=== PATIENT | male | born 1980 | race Caucasian/White ===

== ENCOUNTER 2024-12-17 12:13 | Day surgery (SDC) | payer OTHER, MEDICAID, SELFPAY ==
[2024-12-17] VITALS (9 sets, daily range): BP systolic 107–134; BP diastolic 83–89; PULSE 73–83; RESP 15–18; TEMP 36.2–36.6; O2SAT 73–100; BMI 34.5
[2024-12-17 13:15] LABS: Bedside Glucose 80 mg/dL (74-106)
--- NOTE | 2024-12-17 13:22 | PCM.PRE.AN2 ---
ASA Classification* ASA Classification ASA Classification: 2 Assessment & Plan Anesthesia* Anesthesia Assessment Anesthesia Assessment: Discussed sedation and/or anesthesia options, risks, benefits, and alternatives with patient/parents/legal guardian/POA. Questions invited. The patient/parents/legal guardian/POA seems to understand and agrees to proceed with anesthesia plan. Reviewed the physical assessment, medical history, allergy history and patient home medications list prior to surgery/procedure/anesthetic and documented any changes. Performed airway and anesthesia risk assessments. Anesthesia Type Anesthesia Type: MAC Anesthesia Focused Assessment* Temperature: 97.9 F Pulse Rate: 73 Blood Pressure: 134/88 Respiratory Rate: 16 Pulse Ox: 96 Airway Assessment Mouth opens: >3 cm Mallampati Score: II Teeth Condition: Caps/Crowns Neck Range of motion (ROM): Full ROM Focused Labs Anesthesia Preop lab: CBC CHEMISTRY POC Glucose 80 mg/dL (74-106) 12/17/24 12:44 COAG Pre-Assessment Diagnosis/Proposed Procedure Planned Operative Procedure(s): COLONOSCOPY Anesthesia History Anesthesia History - photograph finisher: Anesthesia History - photograph finisher Hx Hospitalization No 12/14/24 15:40 Any Problems With Anesthesia No 12/14/24 15:40 Cholinesterase deficiency No 12/14/24 15:40 You/Your Family Experience No 12/14/24 15:40 fever (hyperthermia) with Relationship Recent Exposure to Contagious No 12/17/24 12:44 Disease Does patient have nerve No 12/14/24 15:40 stimulator Patient instructed to have device shut off --Does patient have Pacemaker No 12/17/24 12:44 or ICD? When Was Last Pacemaker Check QUESTION #4 FULL TEXT: You/Your Family Experience fever (hyperthermia) with Anesthesia Last Oral Intake Last Oral intake: Last Oral Intake NPO since 10:30 12/17/24 12:44 Meds taken in AM with sips of water? Meds patient instructed to take am of surgery PONV PONV - photograph finisher: PONV - photograph finisher Female No 12/14/24 15:40 HX of Motion Sickness No 12/14/24 15:40 HX of N/V After Surgery No 12/14/24 15:40 Non-Smoker Yes 12/14/24 15:40 Duration of Surgery greater No 12/14/24 15:40 than 60 minutes Number of Risk Factors 1 12/14/24 15:40 PONV Score Low Risk 12/14/24 15:40 Height & Weight Height & Weight: Anesthesia: Height & Weight Height 5 ft 7 in 12/17/24 12:44 Weight: 100 kg 12/17/24 12:44 Body Mass Index (BMI) 34.5 12/17/24 12:44 Respiratory Assessment Respiratory Assessment - photograph finisher: Respiratory Tract Infection Hx - photograph finisher Hx Respiratory Tract Infection No 12/14/24 15:40 STOP Sleep Apnea STOP Sleep Apnea - photograph finisher: STOP Sleep Apnea - photograph finisher Hx Hypertension No 12/14/24 15:40 Hx Sleep Apnea Yes 12/14/24 15:40 CPAP Yes 12/14/24 15:40 BIPAP No 12/14/24 15:40 Do you snore loudly (louder than talking or can be heard Do you often feel tired/ fatigued/ sleepy during daytime? Has anyone observed you stop breathing during sleep? STOP Results Positive 12/14/24 15:40 QUESTION #5 FULL TEXT : Do you snore loudly (louder than talking or can be heard through closed doors)? 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 Specify any problems Hx of Preganancy in last 3 N/A 12/14/24 15:40 Months Nurse Filling Out Transfusion [email or web address] 12/14/24 15:40 & Questions: Date: 12/14/24 12/14/24 15:40 Time: 15:44 12/14/24 15:40 Patient unable to answer at this time (ie. confused, unrespo /Reproduction History /Reproductive History - photograph finisher: /Reproductive Hx- photograph finisher Hx Now Gestational Age (in weeks): EDC: Hx Hx Para Hx Section SAB PFSH Medical History Wears glasses Generalized anxiety disorder Depression Kidney stones Hepatic steatosis GERD (gastroesophageal reflux disease) Daytime sleepiness Home Medications ?Medication ?Instructions ?Recorded ?Last Taken ?Type armodafinil 200 mg tablet 200 mg PO QAM PRN ALERTNESS 09/15/24 Unknown History bupropion HCl 300 mg 24 hr tablet, 300 mg PO QAM 09/15/24 Unknown History extended release omeprazole 40 mg capsule,delayed 40 mg PO QDAY 09/15/24 Unknown History release sertraline 100 mg tablet 100 mg PO QDAY 09/15/24 Unknown History trazodone 50 mg tablet 50 mg PO QHS 09/15/24 Unknown History EVOLUTION 2.0 1 cap PO DAILY 12/14/24 Unknown History Allergy/AdvReac Type Severity Reaction Status Date / Time No Known Allergies Allergy Verified 12/17/24 12:38 Family History (Updated 10/12/24 @ 07:44 by Jocelyne Hanna) Mother Diabetes Father Kidney disease Surgical History History of wisdom tooth extraction History of cystoscopy Social History (Updated 10/12/24 @ 07:44 by Jocelyne Hanna) Smoking Status: Former smoker quit date: 06/28/18 alcohol intake: current alcohol intake frequency: holidays/special occasions only Review of Systems (Anesthesia) ROS Narrative System reviewed and no additional complaints, except as documented.
--- NOTE | 2024-12-17 13:28 | HP.PCM_ITS ---
HPI - General General Date of Admission: 12/29/24 Date of Service: 12/17/24 Chief Complaint: Screening colonoscopy HPI Narrative DOMINICK NEGRON, is a 44 M who presents for a screening colonoscopy. Pt has been on Metformin for years which has given him looser stools. He will have at least 2 episodes of loose stool per day. Occasionally, he will take Lomotil for the loose stools but has not taken anything daily before. He has seen GI in the past for GERD and underwent EGD a few years back. He has been taking omeprazole 40 mg daily since then she feels his symptoms are well controlled. He has some right sided abdominal discomfort on occasion with position changes. He does still have his gallbladder. He has identified that [facility], [facility] Medical History Wears glasses Generalized anxiety disorder Depression Kidney stones Hepatic steatosis GERD (gastroesophageal reflux disease) Daytime sleepiness Home Medications ?Medication ?Instructions ?Recorded ?Last Taken ?Type armodafinil 200 mg tablet 200 mg PO QAM PRN ALERTNESS 09/15/24 Unknown History bupropion HCl 300 mg 24 hr tablet, 300 mg PO QAM 09/15/24 Unknown History extended release omeprazole 40 mg capsule,delayed 40 mg PO QDAY 09/15/24 Unknown History release sertraline 100 mg tablet 100 mg PO QDAY 09/15/24 Unknown History trazodone 50 mg tablet 50 mg PO QHS 09/15/24 Unknown History EVOLUTION 2.0 1 cap PO DAILY 12/14/24 Unknown History Allergy/AdvReac Type Severity Reaction Status Date / Time No Known Allergies Allergy Verified 12/17/24 12:38 Family History Mother Diabetes Father Kidney disease Surgical History History of wisdom tooth extraction History of cystoscopy Social History Smoking Status: Former smoker quit date: 06/28/18 alcohol intake: current alcohol intake frequency: holidays/special occasions only ROS Constitutional Constitutional: Denies fatigue, fever(s), poor appetite, weight gain or weight loss Gastrointestinal Gastrointestinal: Denies belching, bloating, change in bowel habits, change in stool character, chewing difficulty, coffee ground emesis, constipation, cramping, diarrhea, dyspepsia, dysphagia, early satiety, excessive flatus, fecal incontinence, heartburn, hematemesis, hematochezia, hemorrhoids, loose stools, melena, nausea, odynophagia, rectal bleeding, tenesmus, vomiting or weight changes Vital Signs Vital Signs Vital Signs: 12/17/24 12:44 12/17/24 12:44 12/17/24 13:23 Temperature 97.9 F 97.9 F Temperature Source Temporal Pulse Rate 73 73 Respiratory Rate 16 16 Respiratory Pattern Normal Blood Pressure 134/88 H 134/88 H Blood Pressure Mean 103 Blood Pressure Source Monitor Blood Pressure Position Semi-Fowlers Blood Pressure Location Left Arm Pulse Ox 96 96 Oxygen Delivery Method Room Air Weight Weight: 220 lb 7.396 oz Body Mass Index (BMI) 34.5 Physical Exam Const alert, oriented x3, no apparent distress and healthy appearing General Appearance: cooperative GI normal to inspection, nondistended, normoactive bowel sounds, soft to palpation, non-tender and non-distended Percussion: normal to percussion Rectal Exam: deferred Results Lab / Micro Data Labs: Laboratory Results - last 24 hr 12/17/24 12:44: POC Glucose 80 Assessment & Plan Assessment/Plan (1) Screening for colon cancer: PLAN: Assessment and Plan Assessment and Plan (1) GERD (gastroesophageal reflux disease): Status: Acute Plan: This is a 43 yo male pt here today for establishment. Pt was referred here to us for screening colonoscopy as he will be turning 44 soon. He does have complains to loose stool associated with the use of his metformin. His GERD is well controlled on omeprazole therapy. He will undergo screening colonoscopy. -Colonoscopy -f/u as needed (2) Screening for colon cancer: Status: Acute
--- NOTE | 2024-12-17 14:02 | OP.COLON_ITS ---
Patient Name: Jonathan Self Procedure Date: 12/17/2024 1:34 PM Date of : 1980 Age: 44 Procedure: Colonoscopy Indications: Screening for colorectal malignant neoplasm Providers: Zhen Long DO Medicines: Monitored Anesthesia Care Patient Profile: This is a 44 year old male. Refer to note in patient chart for documentation of history and physical. Last Colonoscopy: none. The patient's first colonoscopy is today. Complications: No immediate complications. Procedure: Pre-Anesthesia Assessment: - Prior to the procedure, a History and Physical was performed, and patient medications and allergies were reviewed. The patient is competent. The risks and benefits of the procedure and the sedation options and risks were discussed with the patient. All questions were answered and informed consent was obtained. Patient identification and proposed procedure were verified by the physician in the pre-procedure area. Mental Status Examination: alert and oriented. Airway Examination: normal oropharyngeal airway and neck mobility. Respiratory Examination: clear to auscultation. CV Examination: normal. Prophylactic Antibiotics: The patient does not require prophylactic antibiotics. Prior Anticoagulants: The patient has taken no anticoagulant or antiplatelet agents except for NSAID medication. ASA Grade Assessment: II - A patient with mild systemic disease. After reviewing the risks and benefits, the patient was deemed in satisfactory condition to undergo the procedure. The anesthesia plan was to use monitored anesthesia care (MAC). Immediately prior to administration of medications, the patient was re-assessed for adequacy to receive sedatives. The heart rate, respiratory rate, oxygen saturations, blood pressure, adequacy of pulmonary ventilation, and response to care were monitored throughout the procedure. The physical status of the patient was re-assessed after the procedure. After I obtained informed consent, the scope was passed under direct vision. Throughout the procedure, the patient's blood pressure, pulse, and oxygen saturations were monitored continuously. The colonoscope was introduced through the anus and advanced to the cecum, identified by appendiceal orifice and ileocecal valve. The colonoscopy was performed without difficulty. The patient tolerated the procedure well. The quality of the bowel preparation was adequate. The ileocecal valve, appendiceal orifice, and rectum were photographed. Scope In: 1:44:31 PM Scope Withdrawal Time 0 hours 7 minutes 38 seconds Scope Out: 1:54:28 PM Total Procedure Duration Time 0 hours 9 minutes 57 seconds Findings: The perianal and digital rectal examinations were normal. A few small-mouthed diverticula were found in the recto-sigmoid colon and sigmoid colon. The exam was otherwise without abnormality on direct and retroflexion views. Impression: - Diverticulosis in the recto-sigmoid colon and in the sigmoid colon. - The examination was otherwise normal on direct and retroflexion views. - No specimens collected. Recommendation: - Discharge patient to home. - Resume previous diet. - Continue present medications. - Repeat colonoscopy in 10 years for screening purposes. Procedure Code(s): --- Professional --- G0121, Colorectal cancer screening; colonoscopy on individual not meeting criteria for high risk CPT copyright 2021 [employer]. All rights reserved. The codes documented in this report are preliminary and upon debone supervisor review may be revised to meet current compliance requirements. Zhen Long DO 12/17/2024 2:02:13 PM This report has been signed electronically. Number of Addenda: 0 Note Initiated On: 12/17/2024 1:34 PM
--- NOTE | 2024-12-17 14:02 | PCM.POST.ANE ---
Anesthesia: Postop Eval I Current Vital Signs Temperature: 97.1 F Pulse Rate: 82 Blood Pressure: 116/87 Respiratory Rate: 18 Pulse Ox: 94 Oxygen Delivery Method: Room Air Assessment Airway patent: Yes Spontaneous unlabored respirations: Yes Mental status: Asleep nausea: No Vomiting: No Anesthesia Complication: No Fluid Hydration Crystalloid volume administer (ml): 40 Total IV fluid infused: 40 Progress Note Anesthesia document: Postop Eval 1 completed: Yes
--- NOTE | 2024-12-17 14:12 | PCM.POSTANE2 ---
Anesthesia Postop Eval I Sum Postop Eval Completion status Anesthesia document: Postop Eval 1 completed: Yes Anesthesia Postop Eval I Summary Anesthesia Postop Eval I Summary: Anesthesia Postop Eval I: Assessment Summary Airway patent Yes 12/17/24 14:03 [email or web address] Spontaneous unlabored Yes 12/17/24 14:03 [email or web address] respirations Mental status Asleep 12/17/24 14:03 [email or web address] nausea No 12/17/24 14:03 [email or web address] Vomiting No 12/17/24 14:03 [email or web address] Anesthesia Postop Eval I: Fluid Summary Crystalloid volume administer 40 12/17/24 14:03 [email or web address] (ml) Colloids volume administered ( ml) Blood Product volume administered (ml) Total IV fluid infused 40 12/17/24 14:03 [email or web address] Anesthesia Postop Eval I: Summary Notes Anesthesia Complication No 12/17/24 14:03 [email or web address] Anesthesia Complication Comment: Post-operative progress note Anesthesia: Postop Eval II Evaluation Mental status: Awake Pain Level: 0 nausea: No Vomiting: No
== END 2024-12-17 14:54 | disposition home or self-care (01) ==
LOC: EN 12:18 → AC 12:20
PROVIDERS: PCP Nurse Practitioner Adult Health; Referring Provider Nurse Practitioner Adult Health; Visit Provider Internal Medicine Gastroenterology
PROC: 0DJD8ZZ Inspection of Lower Intestinal Tract, Via Natural or Artificial Opening Endoscopic (ICD-10-PCS; CPT 45378; principal; 2024-12-17 13:25)
DX: Z12.11 Encounter for screening for malignant neoplasm of colon (principal); K21.9 Gastro-esophageal reflux disease without esophagitis; K57.30 Diverticulosis of large intestine without perforation or abscess without bleeding; Z87.891 Personal history of nicotine dependence; F41.1 Generalized anxiety disorder; Z79.84 Long term (current) use of oral hypoglycemic drugs; Z79.899 Other long term (current) drug therapy; F32.A Depression, unspecified
CPT/HCPCS: 45378; 82962; A4216; J2405